=== PATIENT | male | born 1985 | race African-American/Black ===

== ENCOUNTER 2016-05-30 19:01 | Emergency (ER) | payer SELFPAY ==
[2016-05-30 19:23] VITALS: BP 144/87
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
[2016-05-30] MEDS ORDERED: Diphtheria,Pertussis(Acell),Tetanus Vaccine 0.5 ML Syringe IM ONE (19:31)
--- NOTE | 2016-05-31 14:06 | CT ---
EXAM DATE: 05/30/16 PATIENT'S AGE: 30 Patient: ALLYN CASTRO Facility: [place], [place] Site . Site : 1985 Study: CT Facial [id number]/2/2017 7:47:40 PM Ordering Physician: Sampson Escamilla Final Report: INDICATION: Injury TECHNIQUE: CT maxillofacial without contrast. COMPARISON: None available FINDINGS: There is no evidence of an acute facial bone fracture. There is an expansile lucent lesion in the posterior right mandibular alveolar ridge adjacent to a posterior molar, with overlying cortical thinning and erosion, suggestive of a periodontal abscess. Additional smaller osseous lucencies are seen adjacent to multiple mandibular and maxillary teeth, consistent with periodontal disease. There is mild facial soft tissue swelling. The orbital contents appear symmetrical. There is mild paranasal sinus mucosal thickening without air-fluid levels. IMPRESSION: No evidence of an acute facial bone fracture. Osseous lucencies adjacent to multiple maxillary and mandibular teeth, with foci of expansion and cortical erosion, compatible with periodontal disease and periapical abscesses. Correlate clinically. Dictated by Scott Almodovar MD @ 05/30/2016 7:58:41 PM Dictated by: Scott Almodovar MD @ 05/30/2016 19:58:58 (Electronic Signature) Report Signed by Proxy and Original Signed Document filed in the Medical Record. MTDD
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
--- NOTE | 2016-05-31 14:20 | CR ---
EXAM DATE: 05/30/16 PATIENT'S AGE: 30 Patient: ALLYN CASTRO Facility: [place], [place] Site . Site : 1985 Study: XRay Knee Bilateral [id number]/2/2017 8:03:49 PM Ordering Physician: Sampson Escamilla Final Report: INDICATION: Pain. Technique: Left knee with 4views including AP bilateral weightbearing. Impression: Normal alignments. No fractures. No significant joint space abnormality. Dictated by Dimitry Garcia MD @ May 30 2016 8:25PM (Electronic Signature) Report Signed by Proxy and Original Signed Document filed in the Medical Record. YUDITHD
--- NOTE | 2016-05-31 14:28 | CR ---
EXAM DATE: 05/30/16 PATIENT'S AGE: 30 Patient: ALLYN CASTRO Facility: [place], [place] Site . Site : 1985 Study: XRay Knee Bilateral [id number]/2/2017 8:03:49 PM Ordering Physician: Sampson Escamilla Final Report: INDICATION: Pain. Technique: Left knee with 4views including AP bilateral weightbearing. Impression: Normal alignments. No fractures. No significant joint space abnormality. Dictated by Dimitry Garcia MD @ May 30 2016 8:25PM (Electronic Signature) Report Signed by Proxy and Original Signed Document filed in the Medical Record. YUDITHD
== END 2016-05-30 20:42 | disposition home or self-care (01) ==
LOC: MW.ED 19:01
DX: S00.81XA Abrasion of other part of head, initial encounter (principal); S80.212A Abrasion, left knee, initial encounter; S80.211A Abrasion, right knee, initial encounter; F17.210 Nicotine dependence, cigarettes, uncomplicated; W51.XXXA Accidental striking against or bumped into by another person, initial encounter
CPT/HCPCS: 70450; 70450-26; 70486; 70486-26; 73562-26-LT; 73562-26-RT; 73562-LT; 73562-RT; 99283; 99284-25

== ENCOUNTER 2016-05-31 00:48 | Emergency (ER) | payer SELFPAY ==
--- NOTE | 2016-05-31 00:53 | EDM.PDOC ---
ED HPI GENERAL MEDICAL PROBLEM - General Stated Complaint: ANXIETY ATTACK Time Seen by Provider: 05/31/16 00:52 Source of Information: Reports: Patient - History of Present Illness INITIAL COMMENTS - FREE TEXT/NARRATIVE: HISTORY AND PHYSICAL: History of present illness: [] Patient has history of anxiety, he presented with some difficulty breathing, noticed a much better he states he has a history of anxiety and does this at times he like to leave without further workup Review of systems: As per history of present illness and below otherwise all systems reviewed and negative. Past medical history: As per history of present illness and as reviewed below otherwise noncontributory. Surgical history: As per history of present illness and as reviewed below otherwise noncontributory. Social history: No reported history of drug or alcohol abuse. Family history: As per history of present illness and as reviewed below otherwise noncontributory. Physical exam: HEENT: Atraumatic, normocephalic, pupils reactive, negative for conjunctival pallor or scleral icterus, mucous membranes moist, throat clear, neck supple, nontender, trachea midline. Lungs: Clear to auscultation, breath sounds equal bilaterally, chest nontender. Heart: S1S2, regular, negative for clicks, rubs, or JVD. Abdomen: Soft, nondistended, nontender. Negative for masses or hepatosplenomegaly. Negative for costovertebral tenderness. Pelvis: Stable nontender. Genitourinary: Deferred. Rectal: Deferred. Extremities: Atraumatic, negative for cords or calf pain. Neurovascular unremarkable. Neuro: Awake, alert, oriented. Cranial nerves II through XII unremarkable. Cerebellum unremarkable. Motor and sensory unremarkable throughout. Exam nonfocal. Diagnostics: [] Lab as below Therapeutics: [] Impression: [] History of anxiety Patient signed out AGAINST MEDICAL ADVICE without further workup Definitive disposition and diagnosis as appropriate pending reevaluation and review of above. - Related Data Allergies Allergy/AdvReac Type Severity Reaction Status Date / Time No Known Allergies Allergy Verified 05/30/16 19:12 Home Meds: Home Meds . [No Known Home Meds] 09/29/15 [History] Past Medical History - Past Health History Medical/Surgical History: Denies Medical/Surgical History - Infectious Disease History Infectious Disease History: Reports: Chicken pox Social & Family History - Family History Family Medical History: Noncontributory - Tobacco Use Smoking Status *Q: Current Every Day Smoker Years of Tobacco use: 15 Packs/Tins Daily: 1 - Caffeine Use Caffeine Use: Reports: Coffee Caffeine Use Comment: 2cups/day - Alcohol Use Days Per Week of Alcohol Use: 2 Number of Drinks Per Day: 5 Total Drinks Per Week: 10 - Recreational Drug Use Recreational Drug Use: No ED ROS GENERAL - Review of Systems Review Of Systems: ROS reveals no pertinent complaints other than HPI. ED EXAM, GENERAL - Physical Exam Exam: See Below Course - Orders/Labs/Meds Orders: Active Orders 24 hr Category Date Time Status CBC WITH AUTO DIFF [HEME] Stat Lab 05/31/16 00:52 Ordered COMPREHENSIVE METABOLIC PN,CMP [CHEM] Stat Lab 05/31/16 00:52 Ordered DRUG SCREEN, URINE [URCHEM] Stat Lab 05/31/16 00:52 Uncollected UA W/MICROSCOPIC [URIN] Stat Lab 05/31/16 00:52 Uncollected Departure - Departure Time of Disposition: 00:58 Disposition: Against Medical Advice 07 Condition: fair Clinical Impression: Anxiety Additional Instructions: The following information is given to patients seen in the emergency department who are being discharged to home. This information is to outline your options for follow-up care. We provide all patients seen in our emergency department with a follow-up referral. The need for follow-up, as well as the timing and circumstances, are variable depending upon the specifics of your emergency department visit. If you don't have a primary care physician on staff, we will provide you with a referral. We always advise you to contact your personal physician following an emergency department visit to inform them of the circumstance of the visit and for follow-up with them and/or the need for any referrals to a consulting specialist. The emergency department will also refer you to a specialist when appropriate. This referral assures that you have the opportunity for follow-up care with a specialist. All of these measure are taken in an effort to provide you with optimal care, which includes your follow-up. Under all circumstances we always encourage you to contact your private physician who remains a resource for coordinating your care. When calling for follow-up care, please make the office aware that this follow-up is from your recent emergency room visit. If for any reason you are refused follow-up, please contact the [facility] emergency department at and asked to speak to the emergency department charge nurse. - My Orders Last 24 Hours: My Active Orders 05/31/16 00:52 CBC WITH AUTO DIFF [HEME] Stat COMPREHENSIVE METABOLIC PN,CMP [CHEM] Stat DRUG SCREEN, URINE [URCHEM] Stat UA W/MICROSCOPIC [URIN] Stat - Assessment/Plan Last 24 Hours: My Active Orders 05/31/16 00:52 CBC WITH AUTO DIFF [HEME] Stat COMPREHENSIVE METABOLIC PN,CMP [CHEM] Stat DRUG SCREEN, URINE [URCHEM] Stat UA W/MICROSCOPIC [URIN] Stat
[2016-05-31 05:22] VITALS: BP 120/90
== END 2016-05-31 01:01 | disposition left against medical advice (07) ==
LOC: MW.ED 00:48
DX: F41.9 Anxiety disorder, unspecified (principal); F17.210 Nicotine dependence, cigarettes, uncomplicated
CPT/HCPCS: 99282; 99283